=== PATIENT | male | born 1970 | race African-American/Black ===

== ENCOUNTER 2018-11-26 12:10 | Inpatient (IN) | payer OTHER ==
[2018-11-26 12:45] VITALS: BMI 35.4
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
[2018-11-26] MEDS ORDERED: guaiFENesin/D-METHORPHAN HB 10 ML UNIT-DOSE CUPS PO PRN (13:09)
[2018-11-26] MEDS ORDERED: LOPERAMIDE HCL 2 MG CAPSULE PO PRN (13:09)
[2018-11-26] MEDS ORDERED: MAGNESIUM HYDROX 2400MG/30ML ORAL SUSPENSION 30 ML CUP PO PRN (13:09)
[2018-11-26] MEDS ORDERED: P-EPHED 60MG/TRIPROLIDI 2.5MG TABLET PO PRN (13:09)
[2018-11-26] MEDS ORDERED: MAGNESIUM CITRATE 300 ML BOTTLE PO PRN (13:09)
[2018-11-26] MEDS ORDERED: MAG HYDROX/AL HYDROX/SIMETH 30 ML UNIT-DOSE CUP PO PRN (13:09)
[2018-11-26] MEDS ORDERED: MENTHOL/PHENOL 1 EACH UD MM PRN (13:09)
[2018-11-26] MEDS ORDERED: ACETAMINOPHEN 325 MG TABLET (FP) PO PRN (13:09)
[2018-11-26] MEDS ORDERED: IBUPROFEN 400 MG TABLET (FP) PO PRN (13:09)
[2018-11-26] MEDS ORDERED: METHADONE HCL 10 MG TABLET (FOR DETOX USE ONLY) PO ONE ×2 (13:09→23:00)
[2018-11-26] MEDS ORDERED: ALBUTEROL SO4 8 GM HFA INHALER IH PRN (13:11)
[2018-11-26] MEDS: LIDOCAINE 5% TOPICAL PATCH TP SCH (14:43)
--- NOTE | 2018-11-26 15:06 | CONSULT ---
[facility] Psychiatric Consult - Data Date of interview: 11/26/18 Admission source: [facility] Identifying data: Readmission to [facility] for this 48 y/o AA male seeking detoxification treatment, on , for opioid, cocaine, cannabis and xanax dependence. Patient is , a father of three, homeless, unemployed and supported on welfare. Substance Abuse History: Discussed with the patient. Confirmed current [facility] report : Smoking history: Current every day smoker. Have you smoked in the past 12 months: Yes. Aproximately how many cigarettes per day: 20. Hx Chewing Tobacco Use: No. Initiated information on smoking cessation: Yes. 'Breaking Loose' booklet given: 11/26/18 (give on floor). - Substance & Tx. History. Hx Alcohol Use: No. Hx Substance Use: Yes. Substance Use Type: Cocaine, Heroin, Marijuana, Tranquilizers. Hx Substance Use Treatment: Yes (detox, rehab, hx suboxone). - Substances Abused. heroin. Route: Inhalation. Frequency: Daily. Amount used: 10 bags. Age of first use: 17. Date of Last Use: . cocaine. Route: Inhalation. Frequency: 3-6 times per week. Amount used: $30. Age of first use: 17. Date of Last Use: 11/25/18. xanax. Route : Oral. Frequency: Daily. Amount used: three 4mg sticks. Age of first use: 44. Date of Last Use: 11/23/18. marijuana. Route: Smoking. Frequency: 1- 2 times per week. Amount used: 1 joint. Age of first use: 12. Date of Last Use: 11/22/18 Medical History: Bronchial asthma, GERD, diabetes mellitus, obesity, past history of appendectomy + orthosurgery (hardware in left arm). Psychiatric History: No reported history of psychiatric hospitalizations. Patient states that he has been diagnosed with MDD and Anxiety Disorder. Medicated with remeron + abilify + wellbutrin (doses not recalled). [place] taken for two weeks as per [place] Mr Markham requests that his medications be resumed in this hospital course. Sees a psychiatrist at the [facility] clinic in [facility]. Patient denies history of suicide attempts. Physical/Sexual Abuse/Trauma History: Patient denies. Additional Comment: Urine Drug Screen Results: THC-Marijuana, SHIMA-Cocaine, OPI- Opiates, BZO-Benzodiazepines, MTD-Methadone, FEN-Fentanyl. Noted. Mental Status Exam - Mental Status Exam Alert and Oriented to: Time, Place, Person Cognitive Function: Good Patient Appearance: Well Groomed (obese) Mood: Nervous, Withdrawn, Anxious Affect: Mood Congruent, Constricted Patient Behavior: Fatigued, Appropriate, Cooperative (friendly) Speech Pattern: Clear, Appropriate Voice Loudness: Normal Thought Process: Intact, Goal Oriented Thought Disorder: Not Present Hallucinations: Denies Suicidal Ideation: Denies Homicidal Ideation: Denies Insight/Judgement: Poor Sleep: Poorly, Difficulty falling asleep Appetite: Good Muscle strength/Tone: Normal Gait/Station: Normal Psychiatric Findings - Problem List ([place] 1, 2,3) (1) Opioid dependence with withdrawal Current Visit: Yes Status: Acute (2) Cocaine dependence Current Visit: Yes Status: Chronic Qualifiers: Substance use status: uncomplicated Qualified Code(s): F14.20 - Cocaine dependence, uncomplicated (3) Nicotine dependence Current Visit: Yes Status: Chronic Qualifiers: Nicotine product type: cigarettes Substance use status: uncomplicated Qualified Code(s): F17.210 - Nicotine dependence, cigarettes, uncomplicated (4) Cannabis abuse Current Visit: Yes Status: Chronic (5) Substance induced mood disorder Current Visit: Yes Status: Chronic (6) MDD (major depressive disorder) Current Visit: Yes Status: Chronic Comment: By history. On medications. (7) Insomnia Current Visit: Yes Status: Chronic - Initial Treatment Plan Initial Treatment Plan: Psychoeducation. Sleep hygiene. Detoxification. NA meetings. Motivational rounds. Support. Patient wishes to resume his medications with the exception of aripriprazole. Ordered : wellbutrin XL 150 mg po daily + remeron 15 mg po hs. Side effects/benefits of both drugs are discussed with the patient. Consent (verbal) granted to MD. Daley.
[2018-11-26] MEDS ORDERED: MELATONIN 5 MG TABLETS PO PRN (22:00)
[2018-11-26] MEDS: THIAMINE HCL 100 MG TABLET (FP) PO SCH (23:32)
[2018-11-26] MEDS: MIRTAZAPINE 15 MG TABLET (FP) PO SCH (23:32)
[2018-11-26] MEDS: LIDOCAINE PATCH REMOVAL MC SCH (23:39)
[2018-11-27] MEDS ORDERED: METHADONE HCL 10 MG TABLET (FOR DETOX USE ONLY) PO ONE (10:00)
[2018-11-27 10:25] LABS: HEMATOCRIT 42.7 % (35.4-49); HEMOGLOBIN 13.8 GM/dL (11.7-16.9); MCH 30.1 pg (25.7-33.7); MCHC 32.4 g/dl (32.0-35.9); MEAN CELL VOLUME 92.9 fl (80-96); MEAN PLT VOLUME 8.3 fl (7.5-11.1); PLATELET COUNT 212 K/MM3 (134-434); RBC 4.59 M/mm3 (4.00-5.60); RDW 13.7 % (11.9-15.9); WHITE BLOOD COUNT 8.6 K/mm3 (4.0-10.0)
[2018-11-27] MEDS: LIDOCAINE 5% TOPICAL PATCH TP SCH (10:43)
[2018-11-27] MEDS: PRENATAL VITAMINS W/ FOLIC ACID TABLET (FP) PO SCH (10:43)
[2018-11-27] MEDS: diazePAM 5 MG TABLET PO PRN ×2 (10:43→22:04)
[2018-11-27 10:47] LABS: ALBUMIN 3.5 g/dl (3.4-5.0); ALK PHOS 108 U/L (45-117); ANION GAP 4 MMOL/L (8-16); BILIRUBIN,TOTAL 1.5 mg/dL (0.2-1); BLOOD UREA NITROGEN 16 mg/dL (7-18); CHLORIDE 106 mmol/L (98-107); CO2 30 mmol/L (21-32); GLUCOSE,RANDOM 93 mg/dL (74-106); SGOT/AST 17 U/L (15-37); SGPT/ALT 19 U/L (13-61); SODIUM 141 mmol/L (136-145); TOT PROT 6.4 g/dl (6.4-8.2)
[2018-11-27] MEDS: NICOTINE POLACRILEX 4 MG GUM BUC PRN ×2 (16:24→21:49)
--- NOTE | 2018-11-27 16:28 | PN ---
[facility] COWS - Scale Resting Pulse: 0= [place] 80 or Below Sweatin= Chills/Flushing Restless Observation: 3= Extraneous Movement Pupil Size: 0= Normal to Room Light Bone or Joint Aches: 2= Severe Diffuse Aches Runny Nose/ Eye Tearin= Runny Nose/Eyes GI Upset > 30mins: 3= Vomiting/Diarrhea Tremor Observation of Outstretched Hands: 2= Slight Tremor Visible Yawning Observation: 1= 1-2x During Session Anxiety or Irritability: 2=Irritable/Anxious Goose Flesh Skin: 0=Smooth Skin COWS Score: 16 [facility] Progress Note (SOAP) Subjective: Sweating, interrupted sleep Objective: 11/27/18 16:25 Last Vital Signs Temp Pulse Resp BP Pulse Ox 98 F 69 20 101/58 L 11/27/18 13:15 11/27/18 13:15 11/27/18 13:15 11/27/18 13:15 Laboratory Tests 11/27/18 11/27/18 11/27/18 07:30 07:30 07:30 WBC 8.6 RBC 4.59 Hgb 13.8 Hct 42.7 MCV 92.9 MCH 30.1 MCHC 32.4 RDW 13.7 Plt Count 212 MPV 8.3 Sodium 141 Potassium 4.0 Chloride 106 Carbon Dioxide 30 Anion Gap 4 L BUN 16 Creatinine 1.0 Creat Clearance w eGFR > 60 Random Glucose 93 Calcium 8.0 L Total Bilirubin 1.5 H AST 17 ALT 19 Alkaline Phosphatase 108 Total Protein 6.4 Albumin 3.5 RPR Titer Nonreactive Labs reviewed: total bilirubin elevated at 1.5 Assessment: 11/27/18 16:26 Withdrawal symptoms Elevated total bilirubin noted Plan: Continue detox Encouraged PO water hydration Elevated total bilirubin: repeat level in AM
[2018-11-27] MEDS: THIAMINE HCL 100 MG TABLET (FP) PO SCH (22:04)
[2018-11-27] MEDS: LIDOCAINE PATCH REMOVAL MC SCH (22:04)
[2018-11-27] MEDS: MIRTAZAPINE 15 MG TABLET (FP) PO SCH (22:04)
[2018-11-28] MEDS: diazePAM 5 MG TABLET PO PRN ×2 (02:34→07:09)
[2018-11-28] MEDS: NICOTINE POLACRILEX 4 MG GUM BUC PRN (08:25)
[2018-11-28 09:29] VITALS: BP 100/60; PULSE 71; TEMP 98.2
[2018-11-28] MEDS ORDERED: METHADONE HCL 5 MG TABLET (FOR DETOX USE ONLY) PO ONE (10:00)
[2018-11-28] MEDS: PRENATAL VITAMINS W/ FOLIC ACID TABLET (FP) PO SCH (10:10)
[2018-11-28] MEDS: LIDOCAINE 5% TOPICAL PATCH TP SCH (10:12)
--- NOTE | 2018-11-28 13:48 | DS ---
[facility] Discharge Summary Admission Date: 11/26/18 Discharge Date: 11/28/18 - History Present History: Opioid Dependence Additional Comments: 48 years old male admitted on 11/26/18 for opiate withdrawal stabilization insists to leave the detox unit due to no laundry machine to wash his clothing patient is alert no acute distress denies suicidal no homocidal ideation no [facility] Pert[facility] Past History: chely recommend to attend community self help group and meeting patient requesting washing his clothing redirect focusing on opiate sobriety "I just want to go" informed that if necessary, seeking ER services offer narcan patient reject the safety measure of using narcan for opiate overdose - Physical Exam Results Vital Signs: Vital Signs Temperature 98.2 F 11/28/18 09:28 Pulse Rate 71 11/28/18 09:28 Respiratory Rate 18 11/28/18 09:28 Blood Pressure 100/60 11/28/18 09:28 O2 Sat by Pulse Oximetry (%) Pertinent Admission Physical Exam Findings: opiate withdrawal sx Laboratory Last Values WBC 8.6 K/mm3 (4.0-10.0) 11/27/18 07:30 RBC 4.59 M/mm3 (4.00-5.60) 11/27/18 07:30 Hgb 13.8 GM/dL (11.7-16.9) 11/27/18 07:30 Hct 42.7 % (35.4-49) 11/27/18 07:30 MCV 92.9 fl (80-96) 11/27/18 07:30 MCH 30.1 pg (25.7-33.7) 11/27/18 07:30 MCHC 32.4 g/dl (32.0-35.9) 11/27/18 07:30 RDW 13.7 % (11.9-15.9) 11/27/18 07:30 Plt Count 212 K/MM3 (134-434) 11/27/18 07:30 MPV 8.3 fl (7.5-11.1) 11/27/18 07:30 Sodium 141 mmol/L (136-145) 11/27/18 07:30 Potassium 4.0 mmol/L (3.5-5.1) 11/27/18 07:30 Chloride 106 mmol/L (98-107) 11/27/18 07:30 Carbon Dioxide 30 mmol/L (21-32) 11/27/18 07:30 Anion Gap 4 MMOL/L (8-16) L 11/27/18 07:30 BUN 16 mg/dL (7-18) 11/27/18 07:30 Creatinine 1.0 mg/dL (0.55-1.3) 11/27/18 07:30 Creat Clearance w eGFR > 60 (>60) 11/27/18 07:30 Random Glucose 93 mg/dL (74-106) 11/27/18 07:30 Calcium 8.0 mg/dL (8.5-10.1) L 11/27/18 07:30 Total Bilirubin 0.5 mg/dL (0.2-1) 11/28/18 07:30 AST 17 U/L (15-37) 11/27/18 07:30 ALT 19 U/L (13-61) 11/27/18 07:30 Alkaline Phosphatase 108 U/L (45-117) 11/27/18 07:30 Total Protein 6.4 g/dl (6.4-8.2) 11/27/18 07:30 Albumin 3.5 g/dl (3.4-5.0) 11/27/18 07:30 RPR Titer Nonreactive (NONREACTIVE) 11/27/18 07:30 lab noted - Treatment Hospital Course: Detox Protocol Followed, Responded well Patient has Accepted a Rehab Referral to: [facility] services - Medication Discharge Medications: Ambulatory Orders Aripiprazole [Abilify -] 10 mg PO DAILY 11/26/18 Bupropion HCl [Wellbutrin Xl -] 150 mg PO DAILY 11/26/18 Mirtazapine [Remeron -] 30 mg PO HS 11/26/18 - Diagnosis (1) Nicotine dependence Current Visit: Yes Status: Acute Qualifiers: Nicotine product type: cigarettes Substance use status: in withdrawal Qualified Code(s): F17.213 - Nicotine dependence, cigarettes, with withdrawal (2) Opioid dependence with withdrawal Current Visit: Yes Status: Acute (3) Asthma Current Visit: Yes Status: Chronic Qualifiers: Asthma severity: mild Asthma persistence: intermittent Asthma complication type: with status asthmaticus Qualified Code(s): J45.22 - Mild intermittent asthma with status asthmaticus (4) GERD (gastroesophageal reflux disease) Current Visit: Yes Status: Chronic Qualifiers: Esophagitis presence: without esophagitis Qualified Code(s): K21.9 - Gastro -esophageal reflux disease without esophagitis - AMA Did Patient Leave Against Medical Advice: Yes
[2018-11-29] MEDS ORDERED: METHADONE HCL 5 MG TABLET (FOR DETOX USE ONLY) PO ONE (10:00)
[2018-11-30] MEDS ORDERED: METHADONE HCL 10 MG TABLET (FOR DETOX USE ONLY) PO ONE (10:00)
[2018-12-01] MEDS ORDERED: METHADONE HCL 5 MG TABLET (FOR DETOX USE ONLY) PO ONE (06:00)
== END 2018-11-28 11:15 | disposition left against medical advice (07) | DRG 770 ==
LOC: YASAS 12:10 → Y3N 13:49
PROC: HZ2ZZZZ Detoxification Services for Substance Abuse Treatment (ICD-10-PCS; principal; 2018-11-26)
DX: F11.23 Opioid dependence with withdrawal (principal); F14.20 Cocaine dependence, uncomplicated; F13.20 Sedative, hypnotic or anxiolytic dependence, uncomplicated; F12.10 Cannabis abuse, uncomplicated; F17.213 Nicotine dependence, cigarettes, with withdrawal; F33.9 Major depressive disorder, recurrent, unspecified; F19.24 Other psychoactive substance dependence with psychoactive substance-induced mood disorder; J45.22 Mild intermittent asthma with status asthmaticus; K21.9 Gastro-esophageal reflux disease without esophagitis; E80.7 Disorder of bilirubin metabolism, unspecified; R73.03 Prediabetes; E66.09 Other obesity due to excess calories; Z68.35 Body mass index [BMI] 35.0-35.9, adult; G47.00 Insomnia, unspecified; Z91.013 Allergy to seafood
CPT/HCPCS: 36415; 80053; 82247; 85027; 86593

== ENCOUNTER 2019-05-07 08:01 | Inpatient (IN) | payer OTHER ==
[2019-05-07 08:47] VITALS: BMI 36.2
--- NOTE | 2019-05-07 08:54 | HP ---
COWS - Scale Resting Pulse: 0= [place] 80 or Below Sweatin= Chills/Flushing Restless Observation: 1= Difficult to Sit Still Pupil Size: 1= Pupils >than Normal Bone or Joint Aches: 2= Severe Diffuse Aches Runny Nose/ Eye Tearin= Runny Nose/Eyes GI Upset > 30mins: 2= Nausea/Diarrhea Tremor Observation: 2= Slight Tremor Visible Yawning Observation: 1= 1-2x During Session Anxiety or Irritability: 2=Irritable/Anxious Goose Flesh Skin: 0=Smooth Skin COWS Score: 14 CIWA Score Nausea/Vomitin Muscle Tremors: 2 Anxiety: 2 Agitation: 2 Paroxysmal Sweats: 1-Minimal Palms Moist Orientation: 0-Oriented Tacttile Disturbances: 1-Very Mild Itch/Numbness Auditory Disturbances: 1-Very Mild Visual Disturbances: 0-None Headache: 2-Mild CIWA-Ar Total Score: 13 - Admission Criteria [facility] Guidelines: Admission for Medically Managed Detox: Requires at least one of the followin. CIWA greater than 12 2. Seizures within the past 24 hours 3. Delirium tremens within the past 24 hours 4. Hallucinations within the past 24 hours 5. Acute intervention needed for co occurring medical disorder 6. Acute intervention needed for co occurring psychiatric disorder 7. Severe withdrawal that cannot be handled at a lower level of care (continued vomiting, continued diarrhea, abnormal vital signs) requiring intravenous medication and/or fluids 8. Admission ROS [facility] Chief Complaint: i need help to stop using heroin,xanax,cocaine,marijuana,pcp Allergies/Adverse Reactions: Allergies Allergy/AdvReac Type Severity Reaction Status Date / Time Fish Containing Products Allergy Severe Rash Verified 05/07/19 08:43 History of Present Illness: this 48 years old male with heroin,cocaine,xanax,marijuana,pcp,seeking detox, withdrawal symptom had previous admissions before last admission 11/26/18 to 11/28/18 not completed nicotine dependence 1 pack/day,requesting nicotine patch and gum no significant period of sobriety plan for rehab after detox history of asthma,borderlined dm,gerd,bipolar disorder Exam Limitations: No Limitations - Ebola screening Have you traveled outside of the country in the last 21 days: No (N) Have you had contact with anyone from an Ebola affected area: No Do you have a fever: No - Review of Systems Constitutional: Chills, Loss of Appetite, Malaise, Night Sweats, Changes in sleep EENT: reports: Tearing, Nose Congestion Respiratory: reports: No Symptoms reported Cardiac: reports: No Symptoms Reported GI: reports: Diarrhea, Nausea, Vomiting : reports: No Symptoms Reported Musculoskeletal: reports: Back Pain, Joint Pain, Muscle Pain, Joint Stiffness Neuro: reports: Headache, Tremors Endocrine: reports: No Symptoms Reported Hematology: reports: No Symptoms Reported Psychiatric: reports: No Sypmtoms Reported, Judgement Intact, Mood/Affect Appropiate, Orientated x3 Other Systems: Reviewed and Negative Patient History - Patient Medical History Hx Anemia: No Hx Asthma: Yes (inhaler) Hx Chronic Obstructive Pulmonary Disease (COPD): No Hx Cancer: No Hx Cardiac Disorders: No Hx Congestive Heart Failure: No Hx Hypertension: No Hx Hypercholesterolemia: No Hx Pacemaker: No HX Cerebrovascular Accident: No Hx Seizures: No Hx Dementia: No Hx Diabetes: No (borderline) Hx Gastrointestinal Disorders: Yes (Acid reflux) Hx Liver Disease: No Hx Genitourinary Disorders: No Hx Sexually Transmitted Disorders: No Hx Renal Disease (ESRD): No Hx Thyroid Disease: No Hx Human Immunodeficiency Virus (HIV): No (last 02/14 negative) Hx Hepatitis C: No Hx Depression: Yes (never hospitalized, no med) Hx Suicide Attempt: No (denies) Hx Bipolar Disorder: Yes Hx Schizophrenia: No Other Medical History: no suicidal,no homicidal - Patient Surgical History Past Surgical History: Yes Hx Appendectomy: Yes (2000) Hx Orthopedic Surgery: Yes (left elbow with hardware placement in 1988) Anesthesia Reaction: No - PPD History Date: 11/28/18 Results: 0 mm PPD to be Administered?: No - Smoking Cessation Smoking history: Current every day smoker Have you smoked in the past 12 months: Yes Aproximately how many cigarettes per day: 20 Hx Chewing Tobacco Use: No Initiated information on smoking cessation: Yes 'Breaking Loose' booklet given: 05/07/19 - Substance & Tx. History Hx Alcohol Use: No Hx Substance Use: Yes Substance Use Type: Cocaine, Heroin, Marijuana, Tranquilizers Hx Substance Use Treatment: Yes (C 11/26/18 to 11/28/18) - Substances abused Heroin Other (specify): sniff Frequency: Daily Amount used: 1 BUNDLE Age of first use: 17 Date of last use: 05/06/19 Alprazolam (Xanax) Substance route: Oral Frequency: Daily Amount used: 1 STICK to Stick Age of first use: 17 Date of last use: 05/06/19 Crack Substance route: Smoking Amount used: 30$ Age of first use: 17 Date of last use: 05/06/19 Marijuana/Hashish Substance route: Smoking Frequency: 3-6 times per week Amount used: 10$ Age of first use: 17 Date of last use: 05/05/19 PCP Frequency: 1-2 times per week Amount used: 10$ Age of first use: 17 Date of last use: 05/06/19 Alcohol Substance route: Oral Frequency: Daily Amount used: 2pints of whskey/10 of 12 ozs of beer Age of first use: 11 Date of last use: 05/06/19 Family Disease History - Family Disease History Family Disease History: Heart Disease: Father (living, triple bypass), CA: Mother ( - , hx etoh), Other: Father, Mother, Brother (four - living - healthy), Sister (one - living - healthy), Son (one - healthy), Daughter (two - healthy) Admission Physical Exam S - Vital Signs Vital Signs: Vital Signs - 24 hr 05/07/19 08:43 Temperature 97.8 F Pulse Rate 73 Respiratory 18 Rate Blood Pressure 120/75 - Physical General Appearance: Yes: Moderate Distress, Tremorous, Sweating, Anxious HEENTM: Yes: Normal ENT Inspection, JAVIER, Pharynx Normal Respiratory: Yes: Lungs Clear, Normal Breath Sounds, No Respiratory Distress Neck: Yes: Within Normal Limits, Supple, Trachea in good position Breast: Yes: Within Normal Limits Cardiology: Yes: Within Normal Limits, Regular Rhythm, Regular Rate, S1, S2 Abdominal: Yes: Within Normal Limits, Normal Bowel Sounds, Non Tender, Flat, Surgical Scar Genitourinary: Yes: Within Normal Limits Musculoskeletal: Yes: full range of Motion, Back pain, Muscle Pain Extremities: Yes: Within Normal Limits, Tremors Neurological: Yes: religious education coordinator II-XII NML intact, Fully Oriented, Alert, Motor Strength 5/5 Integumentary: Yes: Dry Lymphatic: Yes: Within Normal Limits - Diagnostic (1) Opioid dependence with withdrawal Current Visit: No Status: Acute (2) Uncomplicated sedative, hypnotic or anxiolytic withdrawal Current Visit: Yes Status: Acute (3) Asthma Current Visit: No Status: Chronic Qualifiers: Asthma severity: mild Asthma persistence: intermittent Asthma complication type: with status asthmaticus Qualified Code(s): J45.22 - Mild intermittent asthma with status asthmaticus (4) Cannabis abuse Current Visit: No Status: Chronic (5) Cocaine dependence Current Visit: Yes Status: Acute (6) PCP (phencyclidine) abuse Current Visit: Yes Status: Acute (7) Bipolar disorder Current Visit: Yes Status: Acute (8) GERD (gastroesophageal reflux disease) Current Visit: No Status: Chronic Qualifiers: Esophagitis presence: without esophagitis Qualified Code(s): K21.9 - Gastro -esophageal reflux disease without esophagitis Cleared for Admission [facility] - Detox or Rehab [facility] Level of Care: Medically Managed Detox Regimen/Protocol: Methadone/Valium Inpatient Rehab Admission - Rehab Decision to Admit Inpatient rehab admission?: No
[2019-05-07] MEDS ORDERED: cloNIDine HCL 0.1 MG TABLET PO PRN (09:13)
[2019-05-07] MEDS ORDERED: BISMUTH SUBSALICYLATE 524 MG/30 ML UD PO PRN (09:19)
[2019-05-07] MEDS ORDERED: MENTHOL/PHENOL 1 EACH UD MM PRN (09:19)
[2019-05-07] MEDS ORDERED: MAGNESIUM CITRATE 300 ML BOTTLE PO PRN (09:19)
[2019-05-07] MEDS ORDERED: guaiFENesin 200 MG/10 ML 10 ML UNIT-DOSE CUPS PO PRN (09:19)
[2019-05-07] MEDS ORDERED: METHOCARBAMOL 500 MG TABLET PO PRN (09:19)
[2019-05-07] MEDS ORDERED: ACETAMINOPHEN 325 MG TABLET (FP) PO PRN ×2 (09:19)
[2019-05-07] MEDS ORDERED: hydrOXYzine PAMOATE 25 MG CAPSULE (FP) PO PRN (09:19)
[2019-05-07] MEDS ORDERED: IBUPROFEN 400 MG TABLET (FP) PO PRN (09:19)
[2019-05-07] MEDS ORDERED: NICOTINE POLACRILEX 2 MG GUM BUC PRN (09:19)
[2019-05-07] MEDS ORDERED: MAGNESIUM HYDROX 2400MG/30ML ORAL SUSPENSION 30 ML CUP PO PRN (09:19)
[2019-05-07] MEDS: diazePAM 5 MG TABLET PO PRN (10:00)
[2019-05-07] MEDS: METHADONE HCL 10 MG TABLET (FOR DETOX USE ONLY) PO SCH (10:00)
[2019-05-07] MEDS: PRENATAL VITAMINS W/ FOLIC ACID TABLET (FP) PO SCH (10:01)
[2019-05-07] MEDS: NICOTINE 21 MG/24 HOURS TOPICAL PATCH TD SCH (10:01)
--- NOTE | 2019-05-07 12:11 | PN ---
[facility] CIWA - CIWA Score Nausea/Vomitin-Mild Nausea/No Vomiting Muscle Tremors: 3 Anxiety: 3 Agitation: 3 Paroxysmal Sweats: 1-Minimal Palms Moist Orientation: 0-Oriented Tacttile Disturbances: 1-Very Mild Itch/Numbness Auditory Disturbances: 0-None Visual Disturbances: 0-None Headache: 1-Very Mild CIWA-Ar Total Score: 13 [facility] COWS - Scale Resting Pulse: 0= [place] 80 or Below Sweatin= Chills/Flushing Restless Observation: 0= Sits Still Pupil Size: 0= Normal to Room Light Bone or Joint Aches: 2= Severe Diffuse Aches Runny Nose/ Eye Tearin= Nasal Congestion GI Upset > 30mins: 1= Stomach Cramp Tremor Observation of Outstretched Hands: 2= Slight Tremor Visible Yawning Observation: 1= 1-2x During Session Anxiety or Irritability: 1=Feels Anxious/Irritable Goose Flesh Skin: 3=Piloerection COWS Score: 12 S Progress Note (SOAP) Subjective: TIRED PREFERRING RESTING ON BED TREMOR BODY ACHES Objective: 05/07/19 12:10 Vital Signs Temperature 97.3 F L 05/07/19 10:11 Pulse Rate 74 05/07/19 10:11 Respiratory Rate 18 05/07/19 10:11 Blood Pressure 116/70 05/07/19 10:11 O2 Sat by Pulse Oximetry (%) Laboratory Last Values POC Glucometer 113 UNITS (80-120) 05/07/19 09:36 05/07/19 12:10 LAB ORDERED ON 05/08/19 Assessment: 05/07/19 12:10 WITHDRAWAL SX Plan: CONTINUE DETOX
[2019-05-07] MEDS: diazePAM 5 MG TABLET PO SCH ×2 (14:10→22:03)
[2019-05-07] MEDS ORDERED: PT OWN MED DRAWER 7, Y5N ONE (21:22)
[2019-05-07] MEDS: THIAMINE HCL 100 MG TABLET (FP) PO SCH (22:03)
[2019-05-07] MEDS ORDERED: METHADONE HCL 10 MG TABLET (FOR DETOX USE ONLY) PO ONE (23:00)
[2019-05-08] MEDS: diazePAM 5 MG TABLET PO SCH ×3 (05:36→22:05)
[2019-05-08 09:51] LABS: HEMATOCRIT 41.6 % (35.4-49); HEMOGLOBIN 14.3 GM/dL (11.7-16.9); MCH 31.4 pg (25.7-33.7); MCHC 34.3 g/dl (32.0-35.9); MEAN CELL VOLUME 91.6 fl (80-96); MEAN PLT VOLUME 8.4 fl (7.5-11.1); PLATELET COUNT 212 K/MM3 (134-434); RBC 4.54 M/mm3 (4.00-5.60); WHITE BLOOD COUNT 9.6 K/mm3 (4.0-10.0)
[2019-05-08] MEDS ORDERED: METHADONE HCL 10 MG TABLET (FOR DETOX USE ONLY) PO ONE (10:00)
[2019-05-08 10:06] LABS: ALBUMIN 3.4 g/dl (3.4-5.0); BILIRUBIN,TOTAL 0.4 mg/dL (0.2-1); BLOOD UREA NITROGEN 14.8 mg/dL (7-18); CREATININE 1.2 mg/dL (0.55-1.3); POTASSIUM 3.6 mmol/L (3.5-5.1); TOT PROT 6.5 g/dl (6.4-8.2)
[2019-05-08] MEDS: NICOTINE 21 MG/24 HOURS TOPICAL PATCH TD SCH (10:15)
[2019-05-08] MEDS: PRENATAL VITAMINS W/ FOLIC ACID TABLET (FP) PO SCH (10:16)
[2019-05-08] MEDS: METHADONE HCL 10 MG TABLET (FOR DETOX USE ONLY) PO SCH (10:16)
[2019-05-08] MEDS: diazePAM 5 MG TABLET PO PRN (10:19)
--- NOTE | 2019-05-08 11:13 | CONSULT ---
[facility] Psychiatric Consult - Data Date of interview: 05/08/19 Admission source: [facility] Identifying data: This is one of multiple admissions to [facility] for this 48 y/ o AA male self-referred for detoxification (opioid, cocaine, cannabis, phencyclidine). Patient is , a father of three, homeless, unemployed and reportedly deprived of any source of income. Substance Abuse History: Confirmed by the patient. Discussed in this interview. Details in current [facility] report as follows : Smoking history: Current every day smoker. Have you smoked in the past 12 months: Yes. Aproximately how many cigarettes per day: 20. Hx Chewing Tobacco Use: No. Initiated information on smoking cessation: Yes. 'Breaking Loose' booklet given: 05/07/19. - Substance & Tx. History. Hx Alcohol Use: No. Hx Substance Use: Yes. Substance Use Type : Cocaine, Heroin, Marijuana, Tranquilizers. Hx Substance Use Treatment: Yes ( [facility] 11/26/18 to 11/28/18). - Substances abused. Heroin. Other (specify): sniff. Frequency: Daily. Amount used: 1 BUNDLE. Age of first use: 17. Date of last use: 05/06/19. Alprazolam (Xanax). Substance route: Oral. Frequency: Daily. Amount used: 1 STICK to Stick. Age of first use: 17. Date of last use: 05/06/19. Crack. Substance route: Smoking. Amount used: 30$. Age of first use: 17. Date of last use: 05/06/19. Marijuana/Hashish. Substance route: Smoking. Frequency: 3-6 times per week. Amount used: 10$. Age of first use: 17. Date of last use: 05/05/19. PCP. Frequency: 1-2 times per week. Amount used: 10$. Age of first use: 17. Date of last use: 07/17. Alcohol. Substance route: Oral. Frequency: Daily. Amount used: 2pints of whskey/10 of 12 ozs of beer. Age of first use: 11. Date of last use : 05/06/19 Medical History: Remarkable for bronchial asthma, GERD, diabetes mellitus, obesity, past history of appendectomy + orthosurgery (hardware in left arm). Psychiatric History: Patient denies history of psychiatric hospitalizations. Diagnosed with MDD and Anxiety Disorder. Mr Rashi reports past treatment with remeron + abilify + wellbutrin (not taken for several months). No psychiatric OPD care. Patient states norma he has stopped going to the [facility] OPD clinic in [facility]. Denies history of suicide attempts. Physical/Sexual Abuse/Trauma History: Patient denies. Additional Comment: Toxicology not available. Mental Status Exam - Mental Status Exam Alert and Oriented to: Time, Place, Person Cognitive Function: Good Patient Appearance: Unkempt, Disheveled (obese) Mood: Nervous, Withdrawn Affect: Mood Congruent, Constricted Patient Behavior: Fatigued, Appropriate, Cooperative Speech Pattern: Clear Voice Loudness: Normal Thought Process: Goal Oriented Thought Disorder: Not Present Hallucinations: Denies Suicidal Ideation: Denies Homicidal Ideation: Denies Insight/Judgement: Poor Sleep: Well Appetite: Good Muscle strength/Tone: Normal Gait/Station: Other (not observed ; patient in bed for entire interview) Psychiatric Findings - Problem List ([place] 1, 2,3) (1) Opioid dependence with withdrawal Current Visit: Yes Status: Acute (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 Sleep hygiene. Detoxification in progress. AA/NA meetings. Observation.
--- NOTE | 2019-05-08 11:18 | PN ---
S CIWA - CIWA Score Nausea/Vomitin-Mild Nausea/No Vomiting Muscle Tremors: 3 Anxiety: 3 Agitation: 2 Paroxysmal Sweats: 1-Minimal Palms Moist Orientation: 1-Uncertain about Date Tacttile Disturbances: 1-Very Mild Itch/Numbness Auditory Disturbances: 0-None Visual Disturbances: 0-None Headache: 0-None Present CIWA-Ar Total Score: 12 BHS COWS - Scale Resting Pulse: 0= [place] 80 or Below Sweatin= Chills/Flushing Restless Observation: 0= Sits Still Pupil Size: 0= Normal to Room Light Bone or Joint Aches: 1= Mild Discomfort Runny Nose/ Eye Tearin= Nasal Congestion GI Upset > 30mins: 2= Nausea/Diarrhea Tremor Observation of Outstretched Hands: 2= Slight Tremor Visible Yawning Observation: 2= >3x During Session Anxiety or Irritability: 2=Irritable/Anxious Goose Flesh Skin: 0=Smooth Skin COWS Score: 11 [facility] Progress Note (SOAP) Subjective: body aches tremor tolerate food and fluid well Objective: 05/08/19 11:17 Vital Signs Temperature 97.1 F L 05/08/19 09:06 Pulse Rate 64 05/08/19 09:06 Respiratory Rate 16 05/08/19 09:06 Blood Pressure 112/66 05/08/19 09:06 O2 Sat by Pulse Oximetry (%) Laboratory Last Values WBC 9.6 K/mm3 (4.0-10.0) 05/08/19 07:00 RBC 4.54 M/mm3 (4.00-5.60) 05/08/19 07:00 Hgb 14.3 GM/dL (11.7-16.9) 05/08/19 07:00 Hct 41.6 % (35.4-49) 05/08/19 07:00 MCV 91.6 fl (80-96) 05/08/19 07:00 MCH 31.4 pg (25.7-33.7) 05/08/19 07:00 MCHC 34.3 g/dl (32.0-35.9) 05/08/19 07:00 RDW 13.0 % (11.9-15.9) 05/08/19 07:00 MPV 8.4 fl (7.5-11.1) 05/08/19 07:00 Sodium 143 mmol/L (136-145) 05/08/19 07:00 Potassium 3.6 mmol/L (3.5-5.1) 05/08/19 07:00 Chloride 107 mmol/L (98-107) 05/08/19 07:00 Carbon Dioxide 31 mmol/L (21-32) 05/08/19 07:00 Anion Gap 6 MMOL/L (8-16) L 05/08/19 07:00 BUN 14.8 mg/dL (7-18) 05/08/19 07:00 Creatinine 1.2 mg/dL (0.55-1.3) 05/08/19 07:00 Est GFR (CKD-EPI)AfAm 81.80 05/08/19 07:00 Est GFR (CKD-EPI)NonAf 70.58 05/08/19 07:00 POC Glucometer 149 UNITS (80-120) 05/07/19 16:06 Random Glucose 116 mg/dL (74-106) H 05/08/19 07:00 Calcium 9.0 mg/dL (8.5-10.1) 05/08/19 07:00 Total Bilirubin 0.4 mg/dL (0.2-1) 05/08/19 07:00 AST 16 U/L (15-37) 05/08/19 07:00 ALT 20 U/L (13-61) 05/08/19 07:00 Alkaline Phosphatase 98 U/L (45-117) 05/08/19 07:00 Total Protein 6.5 g/dl (6.4-8.2) 05/08/19 07:00 Albumin 3.4 g/dl (3.4-5.0) 05/08/19 07:00 RPR Titer Nonreactive (NONREACTIVE) 05/08/19 07:00 lab noted Assessment: 05/08/19 11:17 benzo and opiate withdrawal sx Plan: continue detox
[2019-05-08] MEDS: THIAMINE HCL 100 MG TABLET (FP) PO SCH (22:04)
[2019-05-08] MEDS: MELATONIN 5 MG TABLETS PO PRN (22:05)
[2019-05-09] MEDS ORDERED: diazePAM 5 MG TABLET PO ONE (06:00)
[2019-05-09] MEDS ORDERED: METHADONE HCL 10 MG TABLET (FOR DETOX USE ONLY) PO ONE (10:00)
[2019-05-09] MEDS: METHADONE HCL 10 MG TABLET (FOR DETOX USE ONLY) PO SCH (10:41)
[2019-05-09] MEDS: NICOTINE 21 MG/24 HOURS TOPICAL PATCH TD SCH (10:41)
[2019-05-09] MEDS: PRENATAL VITAMINS W/ FOLIC ACID TABLET (FP) PO SCH (10:43)
--- NOTE | 2019-05-09 15:22 | PN ---
S CIWA - CIWA Score Nausea/Vomitin-No Nausea/No Vomiting Muscle Tremors: 3 Anxiety: 2 Agitation: 0-Normal Activity Paroxysmal Sweats: No Perspiration Orientation: 0-Oriented Tacttile Disturbances: 2-Mild Itch/Numbness/Burn Auditory Disturbances: 0-None Visual Disturbances: 2-Mild Sensitivity Headache: 0-None Present CIWA-Ar Total Score: 9 BHS COWS - Scale Resting Pulse: 0= [place] 80 or Below Sweatin= No chills or Flushing Restless Observation: 0= Sits Still Pupil Size: 0= Normal to Room Light Bone or Joint Aches: 2= Severe Diffuse Aches Runny Nose/ Eye Tearin= None GI Upset > 30mins: 0= None Tremor Observation of Outstretched Hands: 2= Slight Tremor Visible Yawning Observation: 1= 1-2x During Session Anxiety or Irritability: 2=Irritable/Anxious Goose Flesh Skin: 0=Smooth Skin COWS Score: 7 [facility] Progress Note (SOAP) Subjective: Body Aches, Tremors, Fatigue. Objective: PATIENT A & O X 3. IN NO ACUTE DISTRESS. 05/09/19 15:21 Vital Signs Temperature 96.9 F L 05/09/19 13:37 Pulse Rate 89 05/09/19 13:37 Respiratory Rate 18 05/09/19 13:37 Blood Pressure 118/69 05/09/19 13:37 O2 Sat by Pulse Oximetry (%) Laboratory Tests 05/07/19 05/07/19 05/08/19 09:36 16:06 07:00 WBC 9.6 RBC 4.54 Hgb 14.3 Hct 41.6 MCV 91.6 MCH 31.4 MCHC 34.3 RDW 13.0 Plt Count 212 MPV 8.4 Sodium Potassium Chloride Carbon Dioxide Anion Gap BUN Creatinine Est GFR (CKD-EPI)AfAm Est GFR (CKD-EPI)NonAf POC Glucometer 113 149 Random Glucose Calcium Total Bilirubin AST ALT Alkaline Phosphatase Total Protein Albumin RPR Titer 05/08/19 05/08/19 07:00 07:00 WBC RBC Hgb Hct MCV MCH MCHC RDW Plt Count MPV Sodium 143 Potassium 3.6 Chloride 107 Carbon Dioxide 31 Anion Gap 6 L BUN 14.8 Creatinine 1.2 Est GFR (CKD-EPI)AfAm 81.80 Est GFR (CKD-EPI)NonAf 70.58 POC Glucometer Random Glucose 116 H Calcium 9.0 Total Bilirubin 0.4 AST 16 ALT 20 Alkaline Phosphatase 98 Total Protein 6.5 Albumin 3.4 RPR Titer Nonreactive LABS NOTED. Assessment: 05/09/19 15:21 WITHDRAWAL SYMPTOMS. Plan: CONTINUE DETOX.
[2019-05-09] MEDS: MELATONIN 5 MG TABLETS PO PRN (22:10)
[2019-05-09] MEDS: THIAMINE HCL 100 MG TABLET (FP) PO SCH (22:10)
[2019-05-10] MEDS ORDERED: METHADONE HCL 5 MG TABLET (FOR DETOX USE ONLY) ONE (08:27)
[2019-05-10] MEDS ORDERED: METHADONE HCL 10 MG TABLET (FOR DETOX USE ONLY) ONE (08:27)
[2019-05-10] MEDS ORDERED: METHADONE (DETOX) 10 MG, METHADONE (DETOX) 5 MG PO ONE (10:00)
[2019-05-10] MEDS ORDERED: METHADONE HCL 10 MG TABLET (FOR DETOX USE ONLY) PO ONE (10:00)
[2019-05-10] MEDS: PRENATAL VITAMINS W/ FOLIC ACID TABLET (FP) PO SCH (10:42)
[2019-05-10] MEDS: NICOTINE 21 MG/24 HOURS TOPICAL PATCH TD SCH (10:42)
--- NOTE | 2019-05-10 15:18 | PN ---
S CIWA - CIWA Score Nausea/Vomitin-No Nausea/No Vomiting Muscle Tremors: 2 Anxiety: 2 Agitation: 0-Normal Activity Paroxysmal Sweats: No Perspiration Orientation: 2-Disoriented Date<2 days Tacttile Disturbances: 1-Very Mild Itch/Numbness Auditory Disturbances: 0-None Visual Disturbances: 1-Very Mild Sensitivity Headache: 0-None Present CIWA-Ar Total Score: 8 BHS COWS - Scale Resting Pulse: 0= [place] 80 or Below Sweatin= No chills or Flushing Restless Observation: 0= Sits Still Pupil Size: 0= Normal to Room Light Bone or Joint Aches: 2= Severe Diffuse Aches Runny Nose/ Eye Tearin= None GI Upset > 30mins: 0= None Tremor Observation of Outstretched Hands: 2= Slight Tremor Visible Yawning Observation: 1= 1-2x During Session Anxiety or Irritability: 2=Irritable/Anxious Goose Flesh Skin: 0=Smooth Skin COWS Score: 7 [facility] Progress Note (SOAP) Subjective: Body Aches, Tremors, Fatigue. Objective: PATIENT A & O X 2 (UNCERTAIN ABOUT CURRENT DAY / DATE). PATIENT OBSERVED AMBULATING ON UNIT UNASSISTED. IN NO ACUTE DISTRESS. 05/10/19 15:20 Vital Signs Temperature 97.0 F L 05/10/19 13:51 Pulse Rate 63 05/10/19 13:51 Respiratory Rate 20 05/10/19 13:51 Blood Pressure 127/78 05/10/19 13:51 O2 Sat by Pulse Oximetry (%) Laboratory Tests 05/07/19 05/07/19 05/08/19 09:36 16:06 07:00 WBC 9.6 RBC 4.54 Hgb 14.3 Hct 41.6 MCV 91.6 MCH 31.4 MCHC 34.3 RDW 13.0 Plt Count 212 MPV 8.4 Sodium Potassium Chloride Carbon Dioxide Anion Gap BUN Creatinine Est GFR (CKD-EPI)AfAm Est GFR (CKD-EPI)NonAf POC Glucometer 113 149 Random Glucose Calcium Total Bilirubin AST ALT Alkaline Phosphatase Total Protein Albumin RPR Titer 05/08/19 05/08/19 07:00 07:00 WBC RBC Hgb Hct MCV MCH MCHC RDW Plt Count MPV Sodium 143 Potassium 3.6 Chloride 107 Carbon Dioxide 31 Anion Gap 6 L BUN 14.8 Creatinine 1.2 Est GFR (CKD-EPI)AfAm 81.80 Est GFR (CKD-EPI)NonAf 70.58 POC Glucometer Random Glucose 116 H Calcium 9.0 Total Bilirubin 0.4 AST 16 ALT 20 Alkaline Phosphatase 98 Total Protein 6.5 Albumin 3.4 RPR Titer Nonreactive LABS NOTED. Assessment: 05/10/19 15:20 WITHDRAWAL SYMPTOMS. Plan: CONTINUE DETOX.
[2019-05-10] MEDS: THIAMINE HCL 100 MG TABLET (FP) PO SCH (22:17)
[2019-05-10] MEDS: MELATONIN 5 MG TABLETS PO PRN (22:19)
[2019-05-10] MEDS: MAG HYDROX/AL HYDROX/SIMETH 30 ML UNIT-DOSE CUP PO PRN (23:44)
[2019-05-11] MEDS ORDERED: METHADONE HCL 5 MG TABLET (FOR DETOX USE ONLY) PO ONE (06:00)
[2019-05-11] MEDS ORDERED: METHADONE HCL 10 MG TABLET (FOR DETOX USE ONLY) PO ONE (10:00)
[2019-05-11] MEDS: PRENATAL VITAMINS W/ FOLIC ACID TABLET (FP) PO SCH (10:26)
[2019-05-11] MEDS: NICOTINE 21 MG/24 HOURS TOPICAL PATCH TD SCH (10:27)
--- NOTE | 2019-05-11 12:58 | PN ---
[facility] CIWA - CIWA Score Nausea/Vomitin-No Nausea/No Vomiting Muscle Tremors: None Anxiety: 1-Mildly Anxious Agitation: 0-Normal Activity Paroxysmal Sweats: 3 Orientation: 0-Oriented Tacttile Disturbances: 2-Mild Itch/Numbness/Burn Auditory Disturbances: 0-None Visual Disturbances: 1-Very Mild Sensitivity Headache: 0-None Present CIWA-Ar Total Score: 7 S COWS - Scale Resting Pulse: 0= [place] 80 or Below Sweatin= Chills/Flushing Restless Observation: 0= Sits Still Pupil Size: 0= Normal to Room Light Bone or Joint Aches: 0= None Runny Nose/ Eye Tearin= None GI Upset > 30mins: 0= None Tremor Observation of Outstretched Hands: 0= None Yawning Observation: 1= 1-2x During Session Anxiety or Irritability: 2=Irritable/Anxious Goose Flesh Skin: 0=Smooth Skin COWS Score: 4 S Progress Note (SOAP) Subjective: Sweating. Objective: PATIENT A & O X 3, OBSERVED AMBULATING ON UNIT UNASSISTED. IN NO ACUTE DISTRESS. 05/11/19 12:57 Vital Signs Temperature 97.0 F L 05/11/19 09:45 Pulse Rate 62 05/11/19 09:45 Respiratory Rate 18 05/11/19 09:45 Blood Pressure 119/63 05/11/19 09:45 O2 Sat by Pulse Oximetry (%) Laboratory Tests 05/07/19 05/07/19 05/08/19 09:36 16:06 07:00 WBC 9.6 RBC 4.54 Hgb 14.3 Hct 41.6 MCV 91.6 MCH 31.4 MCHC 34.3 RDW 13.0 Plt Count 212 MPV 8.4 Sodium Potassium Chloride Carbon Dioxide Anion Gap BUN Creatinine Est GFR (CKD-EPI)AfAm Est GFR (CKD-EPI)NonAf POC Glucometer 113 149 Random Glucose Calcium Total Bilirubin AST ALT Alkaline Phosphatase Total Protein Albumin RPR Titer 05/08/19 05/08/19 05/10/19 07:00 07:00 16:37 WBC RBC Hgb Hct MCV MCH MCHC RDW Plt Count MPV Sodium 143 Potassium 3.6 Chloride 107 Carbon Dioxide 31 Anion Gap 6 L BUN 14.8 Creatinine 1.2 Est GFR (CKD-EPI)AfAm 81.80 Est GFR (CKD-EPI)NonAf 70.58 POC Glucometer 105 Random Glucose 116 H Calcium 9.0 Total Bilirubin 0.4 AST 16 ALT 20 Alkaline Phosphatase 98 Total Protein 6.5 Albumin 3.4 RPR Titer Nonreactive LABS NOTED. Assessment: 05/11/19 12:58 WITHDRAWAL SYMPTOMS. Plan: CONTINUE DETOX. PATIENT SCHEDULED FOR D/C TOMORROW.
[2019-05-11] MEDS: AMMONIUM LACTATE 12% LOTION 225 GM BOTTLE TP SCH ×2 (15:53→21:48)
[2019-05-11] MEDS: MAG HYDROX/AL HYDROX/SIMETH 30 ML UNIT-DOSE CUP PO PRN (19:36)
[2019-05-11] MEDS: MELATONIN 5 MG TABLETS PO PRN (21:49)
[2019-05-11] MEDS: THIAMINE HCL 100 MG TABLET (FP) PO SCH (21:49)
[2019-05-12] MEDS ORDERED: RANITIDINE HCL 150 MG TABLET (FP) PO ONE (00:30)
[2019-05-12] MEDS ORDERED: METHADONE HCL 5 MG TABLET (FOR DETOX USE ONLY) PO ONE (06:00)
[2019-05-12 06:13] VITALS: BP 122/78; PULSE 64; TEMP 97.6
[2019-05-12] MEDS ORDERED: RANITIDINE HCL 150 MG TABLET (FP) PO SCH (10:00)
--- NOTE | 2019-05-12 16:09 | DS ---
[facility] Detox Discharge Summary Admission Date: 05/07/19 Discharge Date: 05/12/19 - History Present History: Cannabis Dependence, Cocaine Dependence, Opioid Dependence, Sedative Dependence, Pcp Dependence Additional Comments: PATIENT LEFT DETOX UNIT EARLY IN AM PRIOR TO TIME OF ARRIVAL OF [employer] CHAPERONE ON DETOX UNIT. PRE-DISCHARGE MEDICAL ASSESSMENT UNABLE TO BE DONE. PER ARMATURE AND R[employer]OR WINDER Natalie FISH, PATIENT INITIALLY INTERESTED IN GOING ON TO [facility] FOR AFTERCARE; HOWEVER, PATIENT DECLINED REHAB BED JUST PRIOR TO LEAVING DETOX UNIT. PATIENT WAS ADVISED TO CONSIDER LOCAL 12-STEP / NA OUTPATIENT SUPPORT GROUP PROGRAMS FOR AFTERCARE. Pertinent Past History: Asthma, Bipolar Disorder, G.E.R.D., Nicotine Dependence, History Of Borderline DM, Depression. - Physical Exam Results Vital Signs: Vital Signs Temperature 97.6 F 05/12/19 06:12 Pulse Rate 64 05/12/19 06:12 Respiratory Rate 16 05/12/19 06:30 Blood Pressure 122/78 05/12/19 06:12 O2 Sat by Pulse Oximetry (%) Pertinent Admission Physical Exam Findings: WITHDRAWAL SYMPTOMS. Laboratory Tests 05/07/19 05/07/19 05/08/19 09:36 16:06 07:00 WBC 9.6 RBC 4.54 Hgb 14.3 Hct 41.6 MCV 91.6 MCH 31.4 MCHC 34.3 RDW 13.0 Plt Count 212 MPV 8.4 Sodium Potassium Chloride Carbon Dioxide Anion Gap BUN Creatinine Est GFR (CKD-EPI)AfAm Est GFR (CKD-EPI)NonAf POC Glucometer 113 149 Random Glucose Calcium Total Bilirubin AST ALT Alkaline Phosphatase Total Protein Albumin RPR Titer 05/08/19 05/08/19 05/10/19 07:00 07:00 16:37 WBC RBC Hgb Hct MCV MCH MCHC RDW Plt Count MPV Sodium 143 Potassium 3.6 Chloride 107 Carbon Dioxide 31 Anion Gap 6 L BUN 14.8 Creatinine 1.2 Est GFR (CKD-EPI)AfAm 81.80 Est GFR (CKD-EPI)NonAf 70.58 POC Glucometer 105 Random Glucose 116 H Calcium 9.0 Total Bilirubin 0.4 AST 16 ALT 20 Alkaline Phosphatase 98 Total Protein 6.5 Albumin 3.4 RPR Titer Nonreactive LABS NOTED. - Treatment Hospital Course: Detox Protocol Followed, Detoxed Safely, Responded well, Discharged Condition Good Patient has Accepted a Rehab Referral to: PT. DECLINED, ADVISED TO CONSIDER LOCAL 12-STEP/NA SUPPORT PROGRAMS. - Medication Discharge Medications: Ambulatory Orders Aripiprazole [Abilify -] 10 mg PO DAILY 11/26/18 Bupropion HCl [Wellbutrin Xl -] 150 mg PO DAILY 11/26/18 Mirtazapine [Remeron -] 30 mg PO HS 11/26/18 - Diagnosis (1) Bipolar disorder Status: Acute Qualifiers: Active/Remission status: remission status unspecified Qualified Code(s): F31.9 - Bipolar disorder, unspecified (2) Opioid dependence with withdrawal Status: Acute (3) Uncomplicated sedative, hypnotic or anxiolytic withdrawal Status: Acute (4) Asthma Status: Chronic Qualifiers: Asthma severity: mild Asthma persistence: intermittent Asthma complication type: with status asthmaticus Qualified Code(s): J45.22 - Mild intermittent asthma with status asthmaticus (5) Cannabis abuse Status: Chronic (6) Cocaine dependence Status: Chronic Qualifiers: Substance use status: uncomplicated Qualified Code(s): F14.20 - Cocaine dependence, uncomplicated (7) GERD (gastroesophageal reflux disease) Status: Chronic Qualifiers: Esophagitis presence: without esophagitis Qualified Code(s): K21.9 - Gastro -esophageal reflux disease without esophagitis (8) PCP (phencyclidine) abuse Status: Chronic (9) Non-compliance Status: Chronic (10) Substance induced mood disorder Status: Chronic - AMA Did Patient Leave Against Medical Advice: No
== END 2019-05-12 08:46 | disposition home or self-care (01) | DRG 773 ==
LOC: YASAS 08:01 → Y3N 09:11
PROVIDERS: ADMIT Surgery; ATTEND Surgery
PROC: HZ2ZZZZ Detoxification Services for Substance Abuse Treatment (ICD-10-PCS; principal; 2019-05-07)
DX: F11.23 Opioid dependence with withdrawal (principal); F10.230 Alcohol dependence with withdrawal, uncomplicated; F13.20 Sedative, hypnotic or anxiolytic dependence, uncomplicated; F14.20 Cocaine dependence, uncomplicated; F16.20 Hallucinogen dependence, uncomplicated; F12.20 Cannabis dependence, uncomplicated; F19.24 Other psychoactive substance dependence with psychoactive substance-induced mood disorder; J45.909 Unspecified asthma, uncomplicated; K21.9 Gastro-esophageal reflux disease without esophagitis; E66.9 Obesity, unspecified; Z68.36 Body mass index [BMI] 36.0-36.9, adult; Z91.19 Patient's noncompliance with other medical treatment and regimen; R73.03 Prediabetes
CPT/HCPCS: 36415; 80053; 82962; 85027; 86593

== ENCOUNTER 2020-01-13 02:41 | Emergency (ER) | payer OTHER ==
[2020-01-13 02:56] VITALS: BP 126/72; PULSE 73; TEMP 98.4; BMI 32.8
[2020-01-13] MEDS ORDERED: ACETAMINOPHEN 1000 MG/100 ML VIAL (NON FORMULARY) IVPB ONE (03:10)
[2020-01-13] MEDS ORDERED: SODIUM CHLORIDE 0.9% 500 ML INFUS.BAG IV ONE (03:10)
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
[2020-01-13 04:32] LABS: BASO % 1.5 % (0-2.0); EOS % 2.1 % (0-4.5); HEMOGLOBIN 12.8 GM/dL (11.7-16.9); LYMPH % 28.7 % (8-40); MCH 31.5 pg (25.7-33.7); MCHC 33.8 g/dl (32.0-35.9); MEAN CELL VOLUME 93.3 fl (80-96); MEAN PLT VOLUME 7.8 fl (7.5-11.1); MONO % 7.5 % (3.8-10.2); NEUT % 60.2 % (42.8-82.8); PLATELET COUNT 238 K/MM3 (134-434); RBC 4.07 M/mm3 (4.00-5.60); RDW 14.1 % (11.9-15.9); WHITE BLOOD COUNT 12.1 K/mm3 (4.0-10.0)
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
[2020-01-13] MEDS ORDERED: ACETAMINOPHEN INJECTION 100 ML IVPB ONE (05:23)
[2020-01-13 06:17] LABS: ALBUMIN 3.4 g/dl (3.4-5.0); BILIRUBIN,TOTAL 0.3 mg/dL (0.2-1); BLOOD UREA NITROGEN 15.7 mg/dL (7-18); CALCIUM 8.3 mg/dL (8.5-10.1); POTASSIUM 3.7 mmol/L (3.5-5.1); TOT PROT 6.2 g/dl (6.4-8.2)
== END 2020-01-13 08:28 | disposition home or self-care (01) ==
LOC: JER 02:41
PROC: 3E033NZ Introduction of Analgesics, Hypnotics, Sedatives into Peripheral Vein, Percutaneous Approach (ICD-10-PCS; principal; 2020-01-13)
DX: M54.2 Cervicalgia (principal); R51 Headache; M54.5 Low back pain; R10.9 Unspecified abdominal pain; F11.10 Opioid abuse, uncomplicated; Y04.2XXA Assault by strike against or bumped into by another person, initial encounter; Y93.89 Activity, other specified; Y92.414 Local residential or business street as the place of occurrence of the external cause; Y99.8 Other external cause status; Y07.6 Multiple perpetrators of maltreatment and neglect; Z91.013 Allergy to seafood
CPT/HCPCS: 36415; 70450-TC; 71260-TC; 72125-TC; 73560-TC-LT-FY; 74177-TC; 80053; 85025; 96374; 99285-25; J0131; Q9967

== ENCOUNTER 2020-01-13 09:39 | Inpatient (IN) | payer OTHER ==
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
--- NOTE | 2020-01-13 10:33 | DS ---
[facility] Rehab Discharge Summary - [facility] Rehab Discharge Summary Discharge Date: 01/13/20 - Medication Discharge Medications: Ambulatory Orders Aripiprazole [Abilify -] 10 mg PO DAILY 11/26/18 Bupropion HCl [Wellbutrin Xl -] 150 mg PO DAILY 11/26/18 Mirtazapine [Remeron -] 30 mg PO HS 11/26/18 - Discharge Instructions Diet, activity, other medical instructions: Diet: Activity: Other medical instructions:
[2020-01-13 10:59] VITALS: BMI 32.8
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
[2020-01-13] MEDS ORDERED: ACETAMINOPHEN 325 MG TABLET (FP) PO PRN ×2 (12:23)
[2020-01-13] MEDS ORDERED: METHOCARBAMOL 500 MG TABLET PO PRN (12:23)
[2020-01-13] MEDS ORDERED: MAGNESIUM CITRATE 300 ML BOTTLE PO PRN (12:23)
[2020-01-13] MEDS ORDERED: MELATONIN 5 MG TABLETS PO PRN (12:23)
[2020-01-13] MEDS ORDERED: cloNIDine HCL 0.1 MG TABLET PO PRN (12:23)
[2020-01-13] MEDS ORDERED: BISMUTH SUBSALICYLATE 262 MG/15 ML BTL PO PRN (12:23)
[2020-01-13] MEDS ORDERED: chlordiazePOXIDE HCL 25 MG CAPSULE PO PRN (12:23)
[2020-01-13] MEDS ORDERED: NICOTINE POLACRILEX 4 MG GUM BUC PRN (12:23)
[2020-01-13] MEDS ORDERED: MAGNESIUM HYDROX 2400MG/30ML ORAL SUSPENSION 30 ML CUP PO PRN (12:23)
[2020-01-13] MEDS ORDERED: chlordiazePOXIDE HCL 25 MG CAPSULE PO ONE (12:23)
[2020-01-13] MEDS ORDERED: METHADONE HCL 10 MG TABLET (FOR DETOX USE ONLY) PO ONE (12:23)
[2020-01-13] MEDS ORDERED: MENTHOL/PHENOL 1 EACH UD MM PRN (12:23)
[2020-01-13] MEDS ORDERED: MAG HYDROX/AL HYDROX/SIMETH 30 ML UNIT-DOSE CUP PO PRN (12:23)
[2020-01-13] MEDS: LIDOCAINE 5% TOPICAL PATCH TP SCH (13:29)
[2020-01-13] MEDS: IBUPROFEN 400 MG TABLET (FP) PO PRN (18:01)
[2020-01-13] MEDS: chlordiazePOXIDE HCL 25 MG CAPSULE PO SCH ×2 (18:15→22:25)
[2020-01-13] MEDS ORDERED: THIAMINE HCL 100 MG TABLET (FP) PO SCH (22:00)
[2020-01-13] MEDS ORDERED: LIDOCAINE PATCH REMOVAL MC SCH (22:00)
[2020-01-14] MEDS: chlordiazePOXIDE HCL 25 MG CAPSULE PO SCH ×2 (05:28→11:58)
[2020-01-14] MEDS: IBUPROFEN 400 MG TABLET (FP) PO PRN (05:31)
[2020-01-14] MEDS ORDERED: METHADONE HCL 5 MG TABLET (FOR DETOX USE ONLY) ONE (09:05)
[2020-01-14] MEDS ORDERED: METHADONE HCL 10 MG TABLET (FOR DETOX USE ONLY) ONE (09:06)
[2020-01-14] MEDS ORDERED: PRENATAL VITAMINS W/ FOLIC ACID TABLET (FP) PO SCH (10:00)
[2020-01-14] MEDS ORDERED: METHADONE (DETOX) 20 MG, METHADONE (DETOX) 5 MG PO ONE (10:00)
--- NOTE | 2020-01-14 11:31 | PN ---
S CIWA - CIWA Score Nausea/Vomitin Muscle Tremors: None Anxiety: 4-Mod. Anxious/Guarded Agitation: 0-Normal Activity Paroxysmal Sweats: 2 Orientation: 0-Oriented Tacttile Disturbances: 0-None Auditory Disturbances: 0-None Visual Disturbances: 0-None Headache: 2-Mild CIWA-Ar Total Score: 10 S COWS - Scale Resting Pulse: 0= CT 80 or Below Sweatin= No chills or Flushing Restless Observation: 0= Sits Still Pupil Size: 2= Moderately Dilated Bone or Joint Aches: 1= Mild Discomfort Runny Nose/ Eye Tearin= None GI Upset > 30mins: 2= Nausea/Diarrhea Tremor Observation of Outstretched Hands: 0= None Yawning Observation: 0= None Anxiety or Irritability: 2=Irritable/Anxious Goose Flesh Skin: 0=Smooth Skin COWS Score: 7 [facility] Progress Note (SOAP) Subjective: Patient admitted for opiod/etoh withdrawal symptoms. Complains of anxiety, mild body aches, headache and nausea. Objective: 01/14/20 11:29 Vital Signs Temperature 97.9 F 01/14/20 05:19 Pulse Rate 60 01/14/20 05:19 Respiratory Rate 18 01/14/20 05:19 Blood Pressure 110/66 01/14/20 05:19 O2 Sat by Pulse Oximetry (%) PE alert and oriented x 3 skin warm and dry pupils mildly dilated, eoms intact bl gi nt, nd ext full rom, amb ad sandeep anxious Assessment: 01/14/20 11:31 Opiod/ETOH withdrawal sx Plan: continue detox encouraged oral fluids monitor clinically
--- NOTE | 2020-01-14 11:31 | CONSULT ---
[facility] Psychiatric Consult - Data Date of interview: 01/14/20 Admission source: [facility] Identifying data: Patient is a 49 year old single male, father of three, employed, but currently homeless. This is one of multiple admissions for patient. Patient admitted to for opiate dpendence. Substance Abuse History: Smoking Cessation. Smoking history: Current every day smoker. Have you smoked in the past 12 months: Yes. Aproximately how many cigarettes per day: 20. Hx Chewing Tobacco Use: No. Initiated information on smoking cessation: Yes. 'Breaking Loose' booklet given: 01/13/20 (give on floor ). - Substance & Tx. History. Hx Alcohol Use: Yes. Hx Substance Use: Yes. Substance Use Type: Alcohol, Cocaine, Heroin, Opiates, Tranquilizers. Hx Substance Use Treatment: Yes (detox, rehab, suboxone ). - Substances abused. * * Heroin. Substance route: Inhalation. Frequency: Daily. Amount used: 1 bundle. Age of first use: 18. Date of last use: 01/12/20. Alcohol. Substance route: Oral. Frequency: Daily. Amount used: 1/2 of sherif. Age of first use: 17. Date of last use: 01/12/20. Cocaine. Substance route: Inhalation. Frequency: Daily. Amount used: 1 gram. Age of first use: 17. Date of last use: 01/12/20. Alprazolam (Xanax). Frequency: Daily. Amount used: 2mg bar daily. Age of first use: 49. Date of last use: 01/12/20. Marijuana/Hashish. Substance route: Smoking. Frequency: 1-2 times per week. Amount used: 1 blunt. Age of first use: 12. Date of last use: 01/12/20 Medical History: Asthma, Acid reflux, Appendectomy, Chronic low back pain, Osteoarthritis, left elbow with hardware placement in 1988 Psychiatric History: Patient denies history of psychiatric hospitalization and suicide attempt. Mr. Markham reports history of outpatient psychiatric history. Past treatment with wellbutrin and abilify. Patient is totally lost in follow up care. At present patient is experiencing difficulty sleeping. Physical/Sexual Abuse/Trauma History: Not discussed. Mental Status Exam - Mental Status Exam Alert and Oriented to: Time, Place, Person Cognitive Function: Good Patient Appearance: Well Groomed Mood: Sad, Withdrawn Affect: Mood Congruent Patient Behavior: Fatigued, Cooperative Speech Pattern: Appropriate Voice Loudness: Mildly Soft/Quiet Thought Process: Goal Oriented Thought Disorder: Not Present Hallucinations: Denies Suicidal Ideation: Denies Homicidal Ideation: Denies Insight/Judgement: Poor Sleep: Poorly Appetite: Fair Muscle strength/Tone: Normal Gait/Station: Normal Psychiatric Findings - Problem List ([place] 1, 2,3) (1) Alcohol dependence, uncomplicated Status: Acute (2) Opioid dependence with withdrawal Status: Acute (3) Uncomplicated sedative, hypnotic or anxiolytic withdrawal Status: Acute (4) Cannabis dependence Status: Chronic (5) Substance-induced anxiety disorder Status: Acute (6) Opioid use disorder Status: Chronic (7) Substance induced mood disorder Status: Chronic (8) Substance-induced sleep disorder Status: Acute - Initial Treatment Plan Initial Treatment Plan: Psychoeducation provided. Detoxification in progress. Will order Belsomra 10mg HS PRN. Benefits and side effects discussed. Verbal consent given.
[2020-01-14 11:34] VITALS: TEMP 98.1
[2020-01-14] MEDS ORDERED: METHADONE HCL 10 MG TABLET (FOR DETOX USE ONLY) PO ONE (11:45)
[2020-01-14 11:49] LABS: HEMATOCRIT 38.4 % (35.4-49); MCH 31.6 pg (25.7-33.7); MCHC 33.8 g/dl (32.0-35.9); MEAN CELL VOLUME 93.3 fl (80-96); MEAN PLT VOLUME 8.7 fl (7.5-11.1); PLATELET COUNT 214 K/MM3 (134-434); RBC 4.11 M/mm3 (4.00-5.60); RDW 14.3 % (11.9-15.9); WHITE BLOOD COUNT 8.2 K/mm3 (4.0-10.0)
[2020-01-14 11:52] LABS: ALBUMIN 3.2 g/dl (3.4-5.0); BILIRUBIN,TOTAL 0.9 mg/dL (0.2-1); BLOOD UREA NITROGEN 11.4 mg/dL (7-18); CALCIUM 8.7 mg/dL (8.5-10.1); POTASSIUM 3.8 mmol/L (3.5-5.1); TOT PROT 6.1 g/dl (6.4-8.2)
[2020-01-14] MEDS: LIDOCAINE 5% TOPICAL PATCH TP SCH (11:58)
[2020-01-14 14:31] VITALS: BP 124/74; PULSE 59
--- NOTE | 2020-01-14 15:06 | DS ---
[facility] Detox Discharge Summary Admission Date: 01/13/20 Discharge Date: 01/14/20 - History Present History: Alcohol Dependence, Opioid Dependence - Physical Exam Results Vital Signs: Vital Signs Temperature 98.1 F 01/14/20 14:33 Pulse Rate 59 L 01/14/20 14:33 Respiratory Rate 15 01/14/20 14:33 Blood Pressure 124/74 01/14/20 14:33 O2 Sat by Pulse Oximetry (%) Laboratory Tests 01/14/20 01/14/20 01/14/20 07:25 07:25 07:25 WBC 8.2 RBC 4.11 Hgb 13.0 Hct 38.4 MCV 93.3 MCH 31.6 MCHC 33.8 RDW 14.3 Plt Count 214 MPV 8.7 D Sodium 144 Potassium 3.8 Chloride 110 H Carbon Dioxide 29 Anion Gap 5 L BUN 11.4 Creatinine 1.0 Est GFR (CKD-EPI)AfAm 101.26 Est GFR (CKD-EPI)NonAf 87.37 Random Glucose 94 Calcium 8.7 Total Bilirubin 0.9 AST 17 ALT 23 Alkaline Phosphatase 90 Total Protein 6.1 L Albumin 3.2 L RPR Titer HIV 1&2 Antibody Screen Cancelled HIV P24 Antigen Cancelled 01/14/20 07:25 WBC RBC Hgb Hct MCV MCH MCHC RDW Plt Count MPV Sodium Potassium Chloride Carbon Dioxide Anion Gap BUN Creatinine Est GFR (CKD-EPI)AfAm Est GFR (CKD-EPI)NonAf Random Glucose Calcium Total Bilirubin AST ALT Alkaline Phosphatase Total Protein Albumin RPR Titer Nonreactive HIV 1&2 Antibody Screen HIV P24 Antigen Patient reports having court 01/16/20 and wants to sign out AMA. Patient encouraged to stay in treatment and explained risk factors of relapse and potential overdose/ with singing out AMA but he refused to stay in treatment. He is medically stable and denies SI/HI. Patient signed out AMA. - Medication Discharge Medications: Ambulatory Orders Aripiprazole [Abilify -] 10 mg PO DAILY 11/26/18 Bupropion HCl [Wellbutrin Xl -] 150 mg PO DAILY 11/26/18 Mirtazapine [Remeron -] 30 mg PO HS 11/26/18 - AMA Did Patient Leave Against Medical Advice: Yes (Patient informed staff he has court 01/16/20 and wants to sign out AMA. )
[2020-01-14] MEDS ORDERED: SUVOREXANT 10 MG TABLET PO PRN (22:00)
[2020-01-15] MEDS ORDERED: chlordiazePOXIDE HCL 25 MG CAPSULE PO SCH (05:00)
[2020-01-15] MEDS ORDERED: METHADONE (DETOX) 10 MG, METHADONE (DETOX) 5 MG PO ONE (10:00)
[2020-01-15] MEDS ORDERED: METHADONE HCL 10 MG TABLET (FOR DETOX USE ONLY) PO ONE (10:00)
--- NOTE | 2020-01-15 10:31 | EKG ---
Test Reason : Blood Pressure : / mmHG Vent. Rate : 052 BPM Atrial Rate : 052 BPM P-R Int : 186 ms QRS Dur : 098 ms QT Int : 442 ms P-R-T Axes : 015 082 053 degrees QTc Int : 411 ms SINUS BRADYCARDIA OTHERWISE NORMAL ECG NO PREVIOUS ECGS AVAILABLE Confirmed by Mary Rivera ([id number]) on 01/15/2020 10:30:42 AM Referred By: MOLLY BASS Confirmed By:Mray Rivera
[2020-01-16] MEDS ORDERED: chlordiazePOXIDE HCL 10 MG CAPSULE PO PRN
[2020-01-16] MEDS ORDERED: chlordiazePOXIDE HCL 10 MG CAPSULE PO SCH (05:00)
[2020-01-16] MEDS ORDERED: METHADONE HCL 10 MG TABLET (FOR DETOX USE ONLY) PO ONE (10:00)
[2020-01-16] MEDS ORDERED: METHADONE (DETOX) 10 MG, METHADONE (DETOX) 5 MG PO ONE (10:00)
[2020-01-17] MEDS ORDERED: chlordiazePOXIDE HCL 10 MG CAPSULE PO SCH (05:00)
[2020-01-17] MEDS ORDERED: METHADONE HCL 10 MG TABLET (FOR DETOX USE ONLY) PO ONE ×2 (10:00)
[2020-01-18] MEDS ORDERED: chlordiazePOXIDE HCL 10 MG CAPSULE PO ONE (05:00)
[2020-01-18] MEDS ORDERED: METHADONE HCL 5 MG TABLET (FOR DETOX USE ONLY) PO ONE (06:00)
== END 2020-01-14 14:56 | disposition left against medical advice (07) | DRG 770 ==
LOC: Y6N 12:30
PROVIDERS: ADMIT Allergy & Immunology; ATTEND Allergy & Immunology
PROC: HZ2ZZZZ Detoxification Services for Substance Abuse Treatment (ICD-10-PCS; principal; 2020-01-13)
DX: F10.230 Alcohol dependence with withdrawal, uncomplicated (principal); F11.23 Opioid dependence with withdrawal; F13.230 Sedative, hypnotic or anxiolytic dependence with withdrawal, uncomplicated; F14.20 Cocaine dependence, uncomplicated; F12.20 Cannabis dependence, uncomplicated; F17.210 Nicotine dependence, cigarettes, uncomplicated; F31.9 Bipolar disorder, unspecified; F19.24 Other psychoactive substance dependence with psychoactive substance-induced mood disorder; F19.282 Other psychoactive substance dependence with psychoactive substance-induced sleep disorder; F19.280 Other psychoactive substance dependence with psychoactive substance-induced anxiety disorder; J45.909 Unspecified asthma, uncomplicated; K21.9 Gastro-esophageal reflux disease without esophagitis; M17.0 Bilateral primary osteoarthritis of knee; M54.5 Low back pain; G89.29 Other chronic pain; R59.0 Localized enlarged lymph nodes; Z91.013 Allergy to seafood
CPT/HCPCS: 36415; 80053; 85027; 86593; 87389; 93005; 93010